=== PATIENT | female | born 1985 | race Caucasian/White ===

== ENCOUNTER 2018-12-28 10:55 | Inpatient (IN) | payer OTHER ==
[~2018-12-28] VITALS: Ht 157.5 cm; Wt 73.0 kg
[2018-12-30 07:40] VITALS: BP 129/86
== END 2018-12-30 14:36 | disposition home or self-care (01) | DRG 807 ==
LOC: LDIP 10:55 → 2NW 14:39
PROVIDERS: ADMIT Obstetrics & Gynecology; ATTEND Obstetrics & Gynecology
PROC: 10E0XZZ Delivery of Products of Conception, External Approach (ICD-10-PCS; principal; 2018-12-28)
PROC: 0HQ9XZZ Repair Perineum Skin, External Approach (ICD-10-PCS; 2018-12-28)
DX: O69.81X0 Labor and delivery complicated by cord around neck, without compression, not applicable or unspecified (principal); Z37.0 Single live birth; O70.0 First degree perineal laceration during delivery; O99.824 Streptococcus B carrier state complicating childbirth; Z3A.40 40 weeks gestation of pregnancy; Z86.001 Personal history of in-situ neoplasm of cervix uteri
CPT/HCPCS: 36415; 85025; 86850; 86900; G0378; J2590